=== PATIENT | female | born 1980 | race African-American/Black ===

== ENCOUNTER 2024-01-07 20:44 | Emergency (ER) | payer OTHER ==
--- NOTE | 2024-01-07 21:00 | ED ---
SOB HPI - General Source: patient, RN notes reviewed Mode of arrival: ambulatory Limitations: no limitations <Marisol Adame - Last Filed: 01/07/24 20:58> <Alex Reyes - Last Filed: 01/07/24 23:51> <Bryce Medina - Last Filed: 01/08/24 02:39> - General Chief Complaint: Shortness of Breath Stated Complaint: Shortness of breath, swelling everywhere Time Seen by Provider: 01/07/24 20:58 - History of Present Illness Initial Comments: Quick note: 43-year-old female presented to the ER with a chief complaint of swelling. Patient states this been going on for 1 week and has been increasing. She does report she started a recent new diabetic medication. She does report mouth surgery on 12-27-2023. She also reports she has had a headache for the past 5 days. She reports swelling in her ankles and abdomen. She also was endorsing shortness of breath. (Marisol Adame) - Related Data Allergies Allergy/AdvReac Type Severity Reaction Status Date / Time No Known Allergies Allergy Verified 01/07/24 20:48 Review of Systems ROS Other: All systems not noted in ROS Statement are negative. <Marisol Adame - Last Filed: 01/07/24 20:58> ROS Other: All systems not noted in ROS Statement are negative. <Alex Reyes - Last Filed: 01/07/24 23:51> ROS Other: All systems not noted in ROS Statement are negative. <Bryce Medina - Last Filed: 01/08/24 02:39> ROS Statement: Those systems with pertinent positive or pertinent negative responses have been documented in the HPI. Past Medical History Past Medical History: Asthma, Diabetes Mellitus, Hypertension History of Any Multi-Drug Resistant Organisms: None Reported Past Surgical History: No Surgical Hx Reported Past Psychological History: No Psychological Hx Reported Smoking Status: Vaper Past Alcohol Use History: Occasional Past Drug Use History: Marijuana <Marisol Adame - Last Filed: 01/07/24 20:58> General Exam Limitations: no limitations <Marisol Adame - Last Filed: 01/07/24 20:58> Limitations: no limitations General appearance: alert, in no apparent distress Head exam: Present: atraumatic, normocephalic Eye exam: Present: normal appearance. Absent: scleral icterus, conjunctival injection ENT exam: Present: normal oropharynx, other (No erythema or drainage. No abscess evident) Neck exam: Present: normal inspection, full ROM. Absent: tenderness, meningismus Respiratory exam: Present: normal lung sounds bilaterally. Absent: respiratory distress, wheezes, rales, rhonchi, stridor, accessory muscle use Cardiovascular Exam: Present: regular rate, normal rhythm, normal heart sounds. Absent: systolic murmur, diastolic murmur, rubs, gallop GI/Abdominal exam: Present: soft. Absent: distended, tenderness, guarding, rebound, rigid, hernia Extremities exam: Present: full ROM, normal capillary refill, pedal edema (Right greater than left edema at the ankle). Absent: calf tenderness Back exam: Present: normal inspection. Absent: CVA tenderness (R), CVA tenderness (L) Neurological exam: Present: alert Skin exam: Present: warm, dry, intact, normal color. Absent: rash <Alex Reyes - Last Filed: 01/07/24 23:51> - General Exam Comments Initial Comments: Visual Physical Exam Vital signs reviewed General: Nontoxic-appearing in no signs of acute distress. Patient does have facial edema. Head: Normocephalic, atraumatic Eyes: PERRLA, EOMI ENT: Airway patent Chest: Nonlabored breathing Skin: No visual rash, normal skin tone Neuro: Alert and oriented 3 Musculoskeletal: No gross abnormalities (Marisol Adame) Course Vital Signs 01/07/24 01/08/24 20:45 01:39 Temperature 97.8 F Pulse Rate 112 H 89 Respiratory 16 18 Rate Blood Pressure 188/76 158/88 O2 Sat by Pulse 98 98 Oximetry Medical Decision Making <Marisol Adame - Last Filed: 01/07/24 20:58> - Lab Data Result diagrams: 01/07/24 21:45 01/07/24 21:45 - EKG Data -: EKG Interpreted by [facility] EKG shows normal: sinus rhythm, axis (Left axis deviation), intervals (Normal), QRS complexes (Low voltage QRS complex) Rate: normal (Rate 90 bpm) <Alex Reyes - Last Filed: 01/07/24 23:51> - Lab Data Result diagrams: 01/07/24 21:45 01/07/24 21:45 <Bryce Medina N - Last Filed: 01/08/24 02:39> - Medical Decision Making I performed the quick note portion of this chart. Electronically signed by Marisol Adame PA-C (Marisol Adame) Patient is 43-year-old woman complaining that she seems to have swelling to the bilateral lower extremities to the lower abdomen. On the exam there is no anasarca. She does have some right greater than left ankle edema therefore will have duplex Doppler. At the time of shift change, the patient's lab tests have returned and there is not evidence of congestive heart failure or kidney failure. I interpreted the chest x-ray to be negative for acute infiltrate, pneumothorax, congestive heart failure Was pt. sent in by a medical professional or institution (TAYLOR Gannon, CLINICAL DATA ANALYST, urgent care, hospital, or snf...) When possible be specific @ -[No] Did you speak to anyone other than the patient for history (EMS, parent, family, police, friend...)? What history was obtained from this source @ -[No] Did you review nursing and triage notes (agree or disagree)? Why? @ -[I reviewed and agree with nursing and triage notes] Were old charts reviewed (outside hosp., previous admission, EMS record, old EKG, old radiological studies, urgent care reports/EKG's, snf records)? Report findings @ -[No old charts were reviewed] Differential Diagnosis (chest pain, altered mental status, abdominal pain women, abdominal pain men, vaginal bleeding, weakness, fever, dyspnea, syncope, headache, dizziness, GI bleed, back pain, seizure, CVA, palpatations, mental health, musculoskeletal)? @ -[The differential diagnosis for this patient includes possible causes of edema including kidney failure, congestive heart failure, liver failure, DVT, cellulitis, trauma, angioedema, this list not comprehensive EKG interpreted by me (3pts min.). @ -[As above] X-rays interpreted by me (1pt min.). @ -[Interpreted as above CT interpreted by me (1pt min.). @ -[None done] U/S interpreted by me (1pt. min.). @ -[None done] What testing was considered but not performed or refused? (CT, X-rays, U/S, labs)? Why? @ -[None] What meds were considered but not given or refused? Why? @ -[None] Did you discuss the management of the patient with other professionals (professionals i.e. , PA, CLINICAL DATA ANALYST, lab, RT, psych nurse, social media marketing analyst, agency sales representative, teacher, wildlife conservation officer, gearcase assembler)? Give summary @ -[No] Was smoking cessation discussed for >3mins.? @ -[No] Was critical care preformed (if so, how long)? @ -[No] Were there social determinants of health that impacted care today? How? (Homelessness, low income, unemployed, alcoholism, drug addiction, transportation, low edu. Level, literacy, decrease access to med. care, longterm, rehab)? @ -[No] Was there de-escalation of care discussed even if they declined (Discuss DNR or withdrawal of care, Hospice)? DNR status @ -[No] What co-morbidities impacted this encounter? (DM, HTN, Smoking, COPD, CAD, Cancer, CVA, ARF, Chemo, Hep., AIDS, mental health diagnosis, sleep apnea, morbid obesity)? @ -[None] Was patient admitted / discharged? Hospital course, mention meds given and route, prescriptions, significant lab abnormalities, going to OR and other pertinent info. @ -[The patient is pending duplex Doppler of the lower extremity at the time of shift change (Alex Reyes) Ultrasound negative for DVT. Patient stable for discharge. (Bryce Medina) - Lab Data Lab Results 01/07/24 01/07/24 01/07/24 Range/Units 21:45 21:45 21:45 WBC 10.6 (3.8-10.6) k/uL RBC 3.60 L (3.80-5.40) m/uL Hgb 10.0 L (11.4-16.0) gm/dL Hct 31.0 L (34.0-46.0) % MCV 86.3 (80.0-100.0) fL MCH 27.7 (25.0-35.0) pg MCHC 32.1 (31.0-37.0) g/dL RDW 15.4 (11.5-15.5) % Plt Count 331 (150-450) k/uL MPV 7.9 Neutrophils % 63 % Lymphocytes % 24 % Monocytes % 6 % Eosinophils % 3 % Basophils % 1 % Neutrophils # 6.7 (1.3-7.7) k/uL Lymphocytes # 2.6 (1.0-4.8) k/uL Monocytes # 0.6 (0-1.0) k/uL Eosinophils # 0.3 (0-0.7) k/uL Basophils # 0.1 (0-0.2) k/uL PT 10.0 (10.0-12.5) sec INR 0.9 (<1.2) APTT 23.1 (22.0-30.0) sec Sodium 135 L (137-145) mmol/L Potassium 4.5 (3.5-5.1) mmol/L Chloride 103 (98-107) mmol/L Carbon Dioxide 27 (22-30) mmol/L Anion Gap 5 mmol/L BUN 20 H (7-17) mg/dL Creatinine 1.05 H (0.52-1.04) mg/dL Est GFR (CKD-EPI)AfAm 75 (>60 ml/min/1.73 sqM) Est GFR (CKD-EPI)NonAf 65 (>60 ml/min/1.73 sqM) Glucose 88 (74-99) mg/dL Plasma Lactic Acid Nicolas (0.7-2.0) mmol/L Calcium 8.5 (8.4-10.2) mg/dL Magnesium 1.8 (1.6-2.3) mg/dL Total Bilirubin 0.4 (0.2-1.3) mg/dL AST 25 (14-36) U/L ALT 25 (4-34) U/L Alkaline Phosphatase 81 (38-126) U/L Troponin I (0.000-0.034) ng/mL NT-Pro-B Natriuret Pep 280 pg/mL Total Protein 7.1 (6.3-8.2) g/dL Albumin 4.0 (3.5-5.0) g/dL 01/07/24 01/07/24 Range/Units 21:45 21:45 WBC (3.8-10.6) k/uL RBC (3.80-5.40) m/uL Hgb (11.4-16.0) gm/dL Hct (34.0-46.0) % MCV (80.0-100.0) fL MCH (25.0-35.0) pg MCHC (31.0-37.0) g/dL RDW (11.5-15.5) % Plt Count (150-450) k/uL MPV Neutrophils % % Lymphocytes % % Monocytes % % Eosinophils % % Basophils % % Neutrophils # (1.3-7.7) k/uL Lymphocytes # (1.0-4.8) k/uL Monocytes # (0-1.0) k/uL Eosinophils # (0-0.7) k/uL Basophils # (0-0.2) k/uL PT (10.0-12.5) sec INR (<1.2) APTT (22.0-30.0) sec Sodium (137-145) mmol/L Potassium (3.5-5.1) mmol/L Chloride (98-107) mmol/L Carbon Dioxide (22-30) mmol/L Anion Gap mmol/L BUN (7-17) mg/dL Creatinine (0.52-1.04) mg/dL Est GFR (CKD-EPI)AfAm (>60 ml/min/1.73 sqM) Est GFR (CKD-EPI)NonAf (>60 ml/min/1.73 sqM) Glucose (74-99) mg/dL Plasma Lactic Acid Nicolas 1.1 (0.7-2.0) mmol/L Calcium (8.4-10.2) mg/dL Magnesium (1.6-2.3) mg/dL Total Bilirubin (0.2-1.3) mg/dL AST (14-36) U/L ALT (4-34) U/L Alkaline Phosphatase (38-126) U/L Troponin I <0.012 (0.000-0.034) ng/mL NT-Pro-B Natriuret Pep pg/mL Total Protein (6.3-8.2) g/dL Albumin (3.5-5.0) g/dL Disposition <Marisol Adame - Last Filed: 01/07/24 20:58> <Alex Reyes - Last Filed: 01/07/24 23:51> Is patient prescribed a controlled substance at d/c from ED?: No Time of Disposition: 02:23 <Bryce Medina - Last Filed: 01/08/24 02:39> Clinical Impression: Peripheral edema Disposition: HOME SELF-CARE Condition: Fair Instructions (If sedation given, give patient instructions): Leg Edema (ED) Referrals: [facility] [Primary Care Provider] - 1-2 days
[2024-01-07 21:17] VITALS: TEMP 97.8
[2024-01-07 22:32] LABS: ALT 25 U/L (4-34); AST 25 U/L (14-36); African American GFR (CKD) 75 (>60 ml/min/1.73 sqM); Alkaline Phosphatase 81 U/L (38-126); Anion Gap 5 mmol/L; Blood Urea Nitrogen 20 mg/dL (7-17); Calcium 8.5 mg/dL (8.4-10.2); Carbon Dioxide 27 mmol/L (22-30); Chloride 103 mmol/L (98-107); Glucose 88 mg/dL (74-99); Magnesium 1.8 mg/dL (1.6-2.3); Non-African American GFR(CKD) 65 (>60 ml/min/1.73 sqM); Potassium 4.5 mmol/L (3.5-5.1); Sodium 135 mmol/L (137-145); Total Bilirubin 0.4 mg/dL (0.2-1.3); Total Protein 7.1 g/dL (6.3-8.2)
[2024-01-07 22:37] LABS: Basophils # (A) 0.1 k/uL (0-0.2); Basophils % (A) 1 %; Eosinophils # (A) 0.3 k/uL (0-0.7); Eosinophils % (A) 3 %; Lymphocytes # (A) 2.6 k/uL (1.0-4.8); Lymphocytes % (A) 24 %; MCH 27.7 pg (25.0-35.0); MCHC 32.1 g/dL (31.0-37.0); MCV 86.3 fL (80.0-100.0); Mean Platelet Volume 7.9; Monocytes # (A) 0.6 k/uL (0-1.0); Monocytes % (A) 6 %; Neutrophils # (A) 6.7 k/uL (1.3-7.7); Neutrophils % (A) 63 %; Platelet Count 331 k/uL (150-450); RDW 15.4 % (11.5-15.5); WBC 10.6 k/uL (3.8-10.6)
[2024-01-07 22:41] LABS: NT-Pro-B-Type Natriuretic Pept 280 pg/mL
[2024-01-07 22:58] LABS: INR 0.9 (<1.2); Partial Thromboplastin Time 23.1 sec (22.0-30.0)
[2024-01-07] MEDS: FUROSEMIDE 10 MG/ML 4 ML VIAL IV STA (23:40)
--- NOTE | 2024-01-08 01:03 | US ---
EXAM: US Duplex Right Lower Extremity Veins CLINICAL HISTORY: ITS.REASON US Reason: swelling, possible DVT TECHNIQUE: Real-time duplex ultrasound scan of the right lower extremity veins integrating B-mode two-dimensional vascular structure, Doppler spectral analysis, color flow Doppler imaging and compression. COMPARISON: No relevant prior studies available. FINDINGS: Deep veins: Unremarkable. No DVT in the visualized common femoral, femoral, proximal deep femoral or popliteal veins. The veins demonstrate normal color flow, are normally compressible, with normal phasic flow and/or augmentation response. Superficial veins: Unremarkable. No thrombus in the visualized great saphenous vein. Soft tissues: No acute findings. No popliteal cyst. IMPRESSION: Normal right lower extremity duplex venous ultrasound.
[2024-01-08 01:58] VITALS: RESP 18
[2024-01-08 03:23] VITALS: BP 132/77; PULSE 88
--- NOTE | 2024-01-08 07:46 | XR ---
EXAMINATION TYPE: XR chest 2V DATE OF EXAM: 01/07/2024 COMPARISON: None HISTORY: 43 year-old female shortness of breath, difficulty breathing TECHNIQUE: PA and lateral views FINDINGS: Heart upper limits of normal in size. Mild interstitial prominence. No consolidation or pleural effus ion. IMPRESSION: Heart upper limits of normal in size. There is also mild interstitial prominence. Correlate with symp toms to exclude mild pulmonary vascular congestion versus bronchitis or asthma. No focal airspace dis ease.
== END 2024-01-08 03:14 | disposition home or self-care (01) ==
LOC: EC 20:44
DX: R60.9 Edema, unspecified (principal)
CPT/HCPCS: 36415; 93005; 83880; 80053; 83605; 83735; 84484; 85025; 85610; 85730; 71046; 99285; 96374; J1940

== ENCOUNTER 2024-05-23 19:22 | Emergency (ER) | payer SELFPAY ==
--- NOTE | 2024-05-23 19:52 | ED ---
GI Bleed HPI <Jessica Munoz - Last Filed: 05/23/24 19:50> <EnglishJenelle - Last Filed: 05/23/24 23:48> - General Stated complaint: blood in stool Time Seen by Provider: 05/23/24 19:50 - History of Present Illness Initial comments: Quick [id number] female with history of diabetes presenting with black stools x 5 days with associated epigastric pain. States her stools have been black and tarry in color. She also reports that her "acid reflux has been flaring up" the past 5 days this morning and she has been vomiting after meals. Denies history of abdominal surgeries. She has never had this before. (AlexanderJessica) Patient is a 44-year-old female past medical history of diabetes, alcoholism presenting for black stools x 5 days as well as epigastric pain and vomiting. Notes frequent tarry loose stools. Has had persistent epigastric pain nausea. Mainly clear emesis though did have blood streaks in her emesis over the last few days. States she is unable to eat due to persistent vomiting after meals. No prior abdominal surgeries. Is not on blood thinners. Does not take NSAIDs. (Jenelle Judd) - Related Data Allergies Allergy/AdvReac Type Severity Reaction Status Date / Time No Known Allergies Allergy Verified 01/07/24 20:48 Review of Systems ROS Other: All systems not noted in ROS Statement are negative. <Jessica Munoz - Last Filed: 05/23/24 19:50> ROS Other: All systems not noted in ROS Statement are negative. Constitutional: Reports: chills. Denies: fever Respiratory: Reports: dyspnea Cardiovascular: Denies: chest pain, edema Gastrointestinal: Reports: abdominal pain, nausea, vomiting, melena. Denies: constipation, hematochezia Musculoskeletal: Reports: back pain (Chronic) <Jenelle Judd - Last Filed: 05/23/24 23:48> ROS Statement: Those systems with pertinent positive or pertinent negative responses have been documented in the HPI. Past Medical History Past Medical History: Asthma, Diabetes Mellitus, Hypertension History of Any Multi-Drug Resistant Organisms: None Reported Past Surgical History: No Surgical Hx Reported Past Psychological History: No Psychological Hx Reported Smoking Status: Vaper Past Alcohol Use History: Occasional Past Drug Use History: Marijuana <Jessica Munoz - Last Filed: 05/23/24 19:50> General Exam <Jessica Munoz - Last Filed: 05/23/24 19:50> <Jenelle Judd - Last Filed: 05/23/24 23:48> - General Exam Comments Initial Comments: Visual Physical Exam General: Well-appearing, nontoxic, no acute distress. Head: Normocephalic, atraumatic Eyes: PERRLA, EOMI ENT: Airway patent Chest: Nonlabored breathing Skin: No visual rash, normal skin tone Neuro: Alert and oriented 3 Musculoskeletal: No gross abnormalities (Jessica Munoz) PE: CONSTITUTIONAL: No apparent distress, well appearing SKIN: Warm, dry, no jaundice, hives or petechiae EYES: Pupils are equally round, extraocular movements intact without nystagmus, clear conjunctiva, non-icteric sclera HENT: Normocephalic, atraumatic, moist mucus membranes, oropharynx clear without exudates NECK: , Full range of motion, normal appearance PULMONARY: Excursion, no stridor, scant wheezes in the bilateral lung l[place], no rhonchi, or rales, normal excursion, no accessory muscle use and no stridor CARDIOVASCULAR: Regular rate, rhythm, normal S1 and S2. No appreciated murmurs, rubs or gallops. Strong radial pulses with intact distal perfusion. No lower extremity edema GASTROINTESTINAL: Soft, tenderness palpation throughout the epigastrium, no palpable masses, guarding with palpation of the epigastrium, no rebound tenderness non-distended, no palpable massesNo hepatosplenomegaly rectal exam was performed with JULIO Escalante at bedside. Hemoccult positive. GENITOURINARY: MUSCULOSKELETAL: Extremities have no gross deformity, no edema, redness, or swelling. NEUROLOGIC:_a/o x 3, GCS 15, normal mentation and speech. Moves all extremities x 4 without motor or sensory deficit PSYCHIATRIC:_normal mood and affect, thought process is clear and linear (Jenelle Judd) Course Vital Signs 05/23/24 05/23/24 05/23/24 19:48 23:34 23:43 Temperature 98.9 F Pulse Rate 92 84 84 Respiratory 22 18 18 Rate Blood Pressure 172/113 O2 Sat by Pulse 93 L Oximetry Medical Decision Making <Jessica Munoz - Last Filed: 05/23/24 19:50> - Lab Data Result diagrams: 05/23/24 20:31 05/23/24 20:31 <Jenelle Judd - Last Filed: 05/23/24 23:48> - Medical Decision Making I completed the quick note portion of this chart signed Jessica Munoz PA-C (Jessica Munoz) Was pt. sent in by a medical professional or institution (, PA, BILINGUAL SCHOOL PSYCHOLOGIST, urgent care, hospital, or [facility]...) When possible be specific @ -No Did you speak to anyone other than the patient for history (EMS, parent, family, police, friend...)? What history was obtained from this source @ -No Did you review nursing and triage notes (agree or disagree)? Why? @ -I reviewed and agree with nursing and triage notes Were old charts reviewed (outside hosp., previous admission, EMS record, old EKG, old radiological studies, urgent care reports/EKG's, [facility] records)? Report findings @ -Old charts reviewed Differential Diagnosis (chest pain, altered mental status, abdominal pain women, abdominal pain men, vaginal bleeding, weakness, fever, dyspnea, syncope, headache, dizziness, GI bleed, back pain, seizure, CVA, palpatations, mental h ealth, musculoskeletal)? Differential diagnose remains broad however top considerations include eso phageal varices, peptic ulcer disease, gastritis, Veena-Dupree tear, aortic type fistula, inflammatory bowel disease, diverticulosis, hemorrhoids, fissure, colitis this is not all-inclusive list EKG interpreted by me (3pts min.). @ -Rhythm, rate 88 bpm, SD interval 148 ms, QRS duration 82 ms, QT/QTc 375/421 ms, left axis deviation, no ST elevation or depression arrhythmia compared to EKG performed on 12/08/2019 X-rays interpreted by me (1pt min.). @ -None done CT interpreted by me (1pt min.). @ -No evidence of perforation or contrast extravasation U/S interpreted by me (1pt. min.). @ -None done What testing was considered but not performed or refused? (CT, X-rays, U/S, labs)? Why? @ -None What meds were considered but not given or refused? Why? @ -Considered morphine for pain control however patient plans to drive herself down to [facility] Did you discuss the management of the patient with other professionals (professionals i.e. , PA, BILINGUAL SCHOOL PSYCHOLOGIST, lab, RT, psych nurse, social media marketer, museum host/hostess, teacher, branch lending officer, returned case inspector)? Give summary @ Discussed with Dr. Garcia, kindly accepts for admission. Was smoking cessation discussed for >3mins.? @ -No Was critical care preformed (if so, how long)? @ -No Were there social determinants of health that impacted care today? How? (Homel essness, low income, unemployed, alcoholism, drug addiction, transportation, low edu. Level, literacy, decrease access to med. care, nursing home, rehab)? @ -Alcoholism Was there de-escalation of care discussed even if they declined (Discuss DNR or withdrawal of care, Hospice)? @ -No What co-morbidities impacted this encounter? (DM, HTN, Smoking, COPD, CAD, Cancer, CVA, ARF, Chemo, Hep., AIDS, mental health diagnosis, sleep apnea, morbid obesity)? @ -Alcoholism Was patient admitted / discharged? Hospital course, mention meds given and route, prescriptions, significant lab abnormalities, going to OR and other pertinent info. @ -Hospital course transfer to [facility]- Patient is a 44-year-old female with a past medical history of diabetes, hypertension, obesity, alcoholism presenting today for 5 days of black tarry stools, generalized weakness, nausea and vomiting. Patient initially assessed in triage. I reviewed triage labs and imaging. Hemoglobin within normal limits. CT abdomen pelvis does not show acute process, shows known synovial cyst. By my assessment patient is well-appearing, no acute distress. NO pallor. Pt nontoxic. Exam significant for epigastric TTP, nondistended, active bowel sounds. No LE edema. Rectal exam performed with RNBoris as director long term care. Showed no fissures or hemorrhoids. Minimal stool collected however Hemoccult positive. Discussed with patient that we do not have a head mixer and she likely requires a scope given melena and hx alcoholism. Discussed transfer to [facility]. Patient agreeable with plan. Offered EMS transport however patient preferred to drive herself. She is stable for self transfer. Will administer protonix for possible upper GIB and nebulizer for wheezing. Discussed with Dr. Garcia, GI, [facility], who kindly accepts for admission. Pt stable for transfer via private vehicle. Undiagnosed new problem with uncertain prognosis? @ Yes Drug Therapy requiring intensive monitoring for toxicity (Heparin, Nitro, Insulin, Cardizem)? @ -No Were any procedures done? @ -No Diagnosis/symptom? @ -Melena, possible upper GI Bleed Acute, or Chronic, or Acute on Chronic? @ Acute Uncomplicated (without systemic symptoms) or Complicated (systemic symptoms)? @ -Complicated Side effects of treatment? @ -No Exacerbation, Progression, or Severe Exacerbation? @ -No Poses a threat to life or bodily function? How? (Chest pain, [place], [place], pneumonia, PE, COPD, DKA, ARF, appy, cholecystitis, CVA, Diverticulitis, Homicidal, Suicidal, threat to staff... and all critical care pts) @ Yes, potentially, if left unmonitored or untreated could result in hemorrhage (Jenelle Judd) - Lab Data Lab Results 05/23/24 05/23/24 05/23/24 Range/Units 20:31 20:31 20:31 WBC 5.7 (3.8-10.6) k/uL RBC 4.26 (3.80-5.40) m/uL Hgb 11.7 (11.4-16.0) gm/dL Hct 35.4 (34.0-46.0) % MCV 83.2 (80.0-100.0) fL MCH 27.4 (25.0-35.0) pg MCHC 33.0 (31.0-37.0) g/dL RDW 17.4 H (11.5-15.5) % Plt Count 298 (150-450) k/uL MPV 7.4 Neutrophils % 46 % Lymphocytes % 33 % Monocytes % 13 % Eosinophils % 3 % Basophils % 2 % Neutrophils # 2.6 (1.3-7.7) k/uL Lymphocytes # 1.9 (1.0-4.8) k/uL Monocytes # 0.7 (0-1.0) k/uL Eosinophils # 0.2 (0-0.7) k/uL Basophils # 0.1 (0-0.2) k/uL Anisocytosis Slight PT 10.3 (10.0-12.5) sec INR 0.9 (<1.2) APTT 22.6 (22.0-30.0) sec Sodium 136 L (137-145) mmol/L Potassium 3.9 (3.5-5.1) mmol/L Chloride 100 (98-107) mmol/L Carbon Dioxide 29 (22-30) mmol/L Anion Gap 7 mmol/L BUN 19 H (7-17) mg/dL Creatinine 1.02 (0.52-1.04) mg/dL Est GFR (CKD-EPI)AfAm 77 (>60 ml/min/1.73 sqM) Est GFR (CKD-EPI)NonAf 67 (>60 ml/min/1.73 sqM) Glucose 79 (74-99) mg/dL Calcium 9.6 (8.4-10.2) mg/dL Total Bilirubin 0.5 (0.2-1.3) mg/dL AST 32 (14-36) U/L ALT 21 (4-34) U/L Alkaline Phosphatase 61 (38-126) U/L Troponin I (0.000-0.034) ng/mL Total Protein 7.7 (6.3-8.2) g/dL Albumin 4.5 (3.5-5.0) g/dL Lipase 113 (23-300) U/L 05/23/ Range/Units 20:31 WBC (3.8-10.6) k/uL RBC (3.80-5.40) m/uL Hgb (11.4-16.0) gm/dL Hct (34.0-46.0) % MCV (80.0-100.0) fL MCH (25.0-35.0) pg MCHC (31.0-37.0) g/dL RDW (11.5-15.5) % Plt Count (150-450) k/uL MPV Neutrophils % % Lymphocytes % % Monocytes % % Eosinophils % % Basophils % % Neutrophils # (1.3-7.7) k/uL Lymphocytes # (1.0-4.8) k/uL Monocytes # (0-1.0) k/uL Eosinophils # (0-0.7) k/uL Basophils # (0-0.2) k/uL Anisocytosis PT (10.0-12.5) sec INR (<1.2) APTT (22.0-30.0) sec Sodium (137-145) mmol/L Potassium (3.5-5.1) mmol/L Chloride (98-107) mmol/L Carbon Dioxide (22-30) mmol/L Anion Gap mmol/L BUN (7-17) mg/dL Creatinine (0.52-1.04) mg/dL Est GFR (CKD-EPI)AfAm (>60 ml/min/1.73 sqM) Est GFR (CKD-EPI)NonAf (>60 ml/min/1.73 sqM) Glucose (74-99) mg/dL Calcium (8.4-10.2) mg/dL Total Bilirubin (0.2-1.3) mg/dL AST (14-36) U/L ALT (4-34) U/L Alkaline Phosphatase (38-126) U/L Troponin I <0.012 (0.000-0.034) ng/mL Total Protein (6.3-8.2) g/dL Albumin (3.5-5.0) g/dL Lipase (23-300) U/L Disposition <Jessica Munoz - Last Filed: 05/23/24 19:50> Is patient prescribed a controlled substance at d/c from ED?: No - Out of Hospital Transfer - Req. Specs Out of Hospital Transfer - Requested Specifics: Other Emergency Center <Jenelle Judd - Last Filed: 05/23/24 23:48> Clinical Impression: Melena Disposition: DC/TRNS INTERMEDIATE CARE FAC Condition: Stable Referrals: [facility] [Primary Care Provider] - 1-2 days
[2024-05-23 19:53] VITALS: BP 172/113; TEMP 98.9
[2024-05-23 20:57] LABS: INR 0.9 (<1.2); Partial Thromboplastin Time 22.6 sec (22.0-30.0); Prothrombin Time 10.3 sec (10.0-12.5)
[2024-05-23 21:11] LABS: ALT 21 U/L (4-34); AST 32 U/L (14-36); African American GFR (CKD) 77 (>60 ml/min/1.73 sqM); Albumin 4.5 g/dL (3.5-5.0); Alkaline Phosphatase 61 U/L (38-126); Anion Gap 7 mmol/L; Blood Urea Nitrogen 19 mg/dL (7-17); Calcium 9.6 mg/dL (8.4-10.2); Carbon Dioxide 29 mmol/L (22-30); Chloride 100 mmol/L (98-107); Glucose 79 mg/dL (74-99); Lipase 113 U/L (23-300); Non-African American GFR(CKD) 67 (>60 ml/min/1.73 sqM); Potassium 3.9 mmol/L (3.5-5.1); Sodium 136 mmol/L (137-145); Total Bilirubin 0.5 mg/dL (0.2-1.3); Total Protein 7.7 g/dL (6.3-8.2)
[2024-05-23 21:13] LABS: Anisocytosis Slight; Basophils # (A) 0.1 k/uL (0-0.2); Basophils % (A) 2 %; Eosinophils # (A) 0.2 k/uL (0-0.7); Eosinophils % (A) 3 %; HCT 35.4 % (34.0-46.0); HGB 11.7 gm/dL (11.4-16.0); Lymphocytes # (A) 1.9 k/uL (1.0-4.8); Lymphocytes % (A) 33 %; MCH 27.4 pg (25.0-35.0); MCV 83.2 fL (80.0-100.0); Mean Platelet Volume 7.4; Monocytes # (A) 0.7 k/uL (0-1.0); Monocytes % (A) 13 %; Neutrophils # (A) 2.6 k/uL (1.3-7.7); Neutrophils % (A) 46 %; Platelet Count 298 k/uL (150-450); RBC 4.26 m/uL (3.80-5.40); RDW 17.4 % (11.5-15.5); WBC 5.7 k/uL (3.8-10.6)
--- NOTE | 2024-05-23 21:50 | CT ---
EXAMINATION TYPE: CT abdomen pelvis w con CT DLP: 1995.4 mGycm, Automated exposure control for dose reduction was used. DATE OF EXAM: 05/23/2024 9:44 PM COMPARISON: None. CLINICAL INDICATION:Female, 44 years old with history of epigastric pain, melena; Epigastric abdomina l pain and vomiting. TECHNIQUE: Axial CT of the abdomen and pelvis. Sagittal and coronal reformats were created on a [employer] workstation. Contrast used:100 ml mL of Isovue 300 with IV Contrast, (none if empty) Oral contrast used: without Oral Contrast (none if empty) FINDINGS: LOWER CHEST: Unremarkable ABDOMEN LIVER: Unremarkable GALLBLADDER AND BILE DUCTS: Unremarkable. PANCREAS: Unremarkable. SPLEEN: Unremarkable. ADRENAL GLANDS: Unremarkable. KIDNEYS AND URETERS: No evidence of hydronephrosis or renal calculus. The ureters are unremarkable. PELVIS BLADDER: Unremarkable REPRODUCTIVE: Unremarkable. ABDOMEN & PELVIS STOMACH AND BOWEL: Stomach and duodenum are unremarkable. No evidence of bowel obstruction. PERITONEUM/RETROPERITONEUM: No evidence of pneumoperitoneum or free fluid. VASCULATURE: No evidence of aortic aneurysm. MUSCULOSKELETAL: Multilevel degenerative changes of the lumbar spine are appreciated. A focus of gas is seen within the area of the thecal sac at the L4-L5 level. LYMPH NODES: No gross evidence for lymphadenopathy. SOFT TISSUE/ABDOMINAL WALL: Unremarkable IMPRESSION: 1. No acute intra-abdominal process. 2. Focus of gas adjacent to the right facet and thecal sac at the L4-L5 level, favored to represent s equela of a synovial cyst secondary to degenerative changes of the lumbar spine. [facility], , 05/23/2024 9:48 PM
[2024-05-23] MEDS: SODIUM CHLORIDE 0.9% 1,000 ML IV ONE (23:18)
[2024-05-23] MEDS: PANTOPRAZOLE 40 MG/10 ML VIAL IVP ONE (23:18)
[2024-05-23] MEDS: IPRATROPIUM-ALBUTEROL 3 ML NEB INHALATION STA (23:34)
[2024-05-23 23:37] VITALS: PULSE 84; RESP 18
== END 2024-05-24 01:50 ==
LOC: EC 19:22
CPT/HCPCS: 36415; 74177; 80053; 83690; 84484; 85025; 85610; 85730; 93005; 94640; 96361; 96374; 99285